=== PATIENT | male | born 1955 | race Hispanic/Latino ===

== ENCOUNTER 2022-02-06 16:42 | Emergency (ER) | payer BC, MEDICARE ==
[~2022-02-06] VITALS: Ht 170.2 cm; Wt 94.3 kg
[2022-02-06] MEDS ORDERED: TETANUS/DIPHTHERIA TOXOID [ADULT] 0.5 ML VIAL IM ONE (17:30)
[2022-02-06] MEDS ORDERED: ONDANSETRON 4MG INJ IVP ONE (17:30)
[2022-02-06] MEDS ORDERED: KETOROLAC 30MG VIAL (30MG/ML) IVP ONE (17:30)
[2022-02-06 17:41] LABS: BASOPHILS % (AUTO) 0.2 % (0.0-5.0); HEMATOCRIT 38.4 % (42-54); LYMPHOCYTES % (AUTO) 6.3 % (21.0-51.0); MEAN CORPUSCULAR HGB CONC 34.1 g/dL (32.0-36.0); MEAN CORPUSCULAR VOLUME 87.9 fL (79-99); NEUTROPHILS % (AUTO) 88.2 % (40.0-77.0); PLATELET COUNT (AUTO) 153 K/uL (130-400); RED BLOOD CELL COUNT(AUTO) 4.37 MIL/uL (4.50-6.20); RED CELL DISTRIBUTION WIDTH 13.2 % (11.0-15.5); WHITE BLOOD COUNT (AUTO) 13.2 K/uL (4.8-10.8)
[2022-02-06 17:56] LABS: CARBON DIOXIDE 27 mmol/L (21-32); CHLORIDE 102 mmol/L (101-111); CREATININE 1.5 mg/dL (0.5-1.5); GLOMERULAR FILTR. RATE CALC 50 mL/min (>60); GLUCOSE,RANDOM 115 mg/dL (70-105); POTASSIUM 4.2 mmol/L (3.5-5.1); SODIUM SERUM 138 mmol/L (136-145); UREA NITROGEN, BLOOD 22 mg/dL (7-18)
[2022-02-06 18:02] LABS: ALANINE AMINOTRANSFERASE 21 U/L (12-78); ASPARTATE AMINOTRANSFERASE 19 U/L (10-37); CREATINE KINASE, TOTAL 126 U/L (21-232); TOTAL PROTEIN, SERUM 8.2 g/dL (6.0-8.3)
[2022-02-06 18:10] LABS: CRP QUANTITATIVE < 2.00 mg/L (0.00-9.0)
[2022-02-06] MEDS ORDERED: CEFAZOLIN SODIUM 1 GM VIAL IVP SCH (18:30)
[2022-02-06] MEDS ORDERED: 0.9%NACL 1000ML 1,000 ML IV SCH (19:00)
[2022-02-06 20:15] VITALS: BP 141/68
[2022-02-06] MEDS ORDERED: ACET-2247 PO (20:20)
[2022-02-06] MEDS ORDERED: CLIN-141 PO (20:20)
[2022-02-06] MEDS ORDERED: METH4TAB3 PO (20:20)
[2022-02-06] MEDS ORDERED: SODI30SP3 NS (20:20)
[2022-02-06] MEDS ORDERED: DEXAMETHASONE 4 MG TAB PO SCH (20:30)
[2022-02-06] MEDS ORDERED: CLINDAMYCIN 150 MG CAP PO ONE (20:30)
== END 2022-02-06 20:54 | disposition home or self-care (01) ==
LOC: EDH 16:42
DX: S02.32XA Fracture of orbital floor, left side, initial encounter for closed fracture (principal); S02.40DA Maxillary fracture, left side, initial encounter for closed fracture; S01.112A Laceration without foreign body of left eyelid and periocular area, initial encounter; S16.1XXA Strain of muscle, fascia and tendon at neck level, initial encounter; C79.51 Secondary malignant neoplasm of bone; M25.561 Pain in right knee; Z20.822 Contact with and (suspected) exposure to COVID-19; E11.9 Type 2 diabetes mellitus without complications; E78.00 Pure hypercholesterolemia, unspecified; I10 Essential (primary) hypertension; Z79.52 Long term (current) use of systemic steroids; W18.39XA Other fall on same level, initial encounter; Y93.89 Activity, other specified; Y92.89 Other specified places as the place of occurrence of the external cause; Y99.8 Other external cause status
CPT/HCPCS: 99285; 70450; 96374; 71045; 96375; 87635; 82550; 84484; 80053; 85025; 86140; 36415; 90714; 73562; 72125; 70486; 90471; 93005; C9803; J0690; J7030; J2405; J1885; J8540